=== PATIENT | female | born 1985 | race Caucasian/White ===

== ENCOUNTER 2021-03-09 01:08 | Emergency (ER) | payer OTHER ==
[~2021-03-09 01:08] MED LIST: MACROBID 100 M100 MG PO
[2021-03-09 06:01] LABS: HEMOGLOBIN 13.6 gm/dl (12.3-15.3); RED BLOOD COUNT 4.56 M/UL (4.00-5.10); WHITE BLOOD COUNT 22.4 K/UL (4.5-11.0)
[2021-03-09 06:32] LABS: BUN/CREATININE RATIO 12 (0-10)
== END 2021-03-09 10:35 | disposition home or self-care (01) ==
LOC: ER1 01:08
PROVIDERS: Physician Assistant
DX: R06.00 Dyspnea, unspecified (principal); I10 Essential (primary) hypertension; K21.9 Gastro-esophageal reflux disease without esophagitis; F17.200 Nicotine dependence, unspecified, uncomplicated; Z20.822 Contact with and (suspected) exposure to COVID-19
CPT/HCPCS: 0240U; 71046; 71260; 80053; 81001; 82550; 82553; 83874; 84439; 84443; 84484; 84703; 85025; 85379; 86403; 87081; 87880; 94640; 94664; 99285; Q9967